=== PATIENT | male | born 1950 | race Caucasian/White ===

== ENCOUNTER → 2022-08-14 | Outpatient (CLI) | payer MEDICARE, BC ==
[2022-08-14 18:41] LABS: INR 1.1 (0.8-3.0); PROTHROMBIN TIME 12.3 SECONDS (9.7-12.8)
[2022-08-16 06:35] LABS: PT G20210A MUTATION B Negative (Negative)
[2022-08-16 08:57] LABS: FACTOR V LEIDEN MUTATION B Negative (Negative)
[2022-08-16 15:34] LABS: LUPUS ANTICOAGULANT INR 1.1 (0.7-1.3); LUPUS ANTICOAGULANT PT 14.5 Seconds (())
[2022-08-17 08:20] LABS: PROTEIN C ACTIVITY 93 % (70-150)
[2022-08-17 08:22] LABS: ANTI-THROMBIN III 98 % (72-128)
== END ==
LOC: COL.LAB 17:18
PROVIDERS: Internal Medicine Pulmonary Disease
DX: Z01.89 Encounter for other specified special examinations (principal)

== ENCOUNTER → 2022-11-06 | Outpatient (CLI) | payer MEDICARE, BC | LOC: COL.RAD 09:52 | DX: J47.9 Bronchiectasis, uncomplicated (principal); J98.4 Other disorders of lung; J43.9 Emphysema, unspecified; I26.99 Other pulmonary embolism without acute cor pulmonale; R91.1 Solitary pulmonary nodule | CPT/HCPCS: Q9967 ==